=== PATIENT | female | born 1995 | race Caucasian/White ===

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

== ENCOUNTER 2017-02-10 15:06 | Emergency (ER) | payer BC ==
[2017-02-10 15:46] VITALS: BP 109/67
--- NOTE | 2017-02-10 16:09 | UC ---
Back Pain HPI - HPI Summary HPI Summary: 21 y/o female with prior history of back strain at work, resolved completely, states about 2 weeks ago started having lower back pain, no trauma/ falls/ heavy lifiting, has tried motrin, ice, heat, heat with some benefit, no worse with lying, standing, no aggravating factors, states pain at L hip, occassionally with radiate to rib region, no incontinence, numbness, decreased strength down legs. no other PMH, no medications. - History of Current Complaint Chief Complaint: UCBackPain Stated Complaint: LOW BACK PAIN Time Seen by Provider: 02/10/17 15:57 Hx Obtained From: Patient, Family/Starch [employer]er - boyfriend Hx Last Menstrual Period: 02/03/17 ?: No Onset/Duration: Gradual Onset, Lasting Weeks Timing: Constant Severity Initially: Moderate Severity Currently: Moderate - Allergies/Home Medications Allergies/Adverse Reactions: Allergies Allergy/AdvReac Type Severity Reaction Status Date / Time Amoxicillin [From Augmentin] Allergy Unknown Unknown Verified 02/10/17 15:42 Reaction Details Clavulanic Acid Allergy Unknown Unknown Verified 02/10/17 15:42 [From Augmentin] Reaction Details Home Medications: Home Medications Bupropion XL* [Wellbutrin XL *] 150 mg PO DAILY 02/10/17 [History Confirmed 07/29] PMH/Surg Hx/FS Hx/Imm Hx Previously Healthy: Yes Other History Of: Negative For: HIV, Hepatitis B, Hepatitis C, Anticoagulant Therapy - Surgical History Surgical History: Yes Surgery Procedure, Year, and Place: ear tubes and ear patches - Family History Known Family History: Negative: Cardiac Disease, Hypertension, Diabetes - Social History Alcohol Use: Rare Substance Use Type: Marijuana Substance Use Comment - Amount & Last Used: occ usage - 3-4 times per week Smoking Status (MU): Light Every Day Tobacco Smoker Type: Cigarettes Amount Used/How Often: 1-5 cigarettes daily Length of Time of Smoking/Using Tobacco: 2-3 YRS Have You Smoked in the Last Year: Yes Review of Systems Musculoskeletal: Arthralgia, Myalgia All Other Systems Reviewed And Are Negative: Yes Physical Exam Triage Information Reviewed: Yes Appearance: Well-Appearing, No Pain Distress, Well-Nourished Vital Signs: Initial Vital Signs Temp 99.5 F 02/10/17 15:43 Pulse 89 02/10/17 15:43 Resp 16 02/10/17 15:43 BP 109/67 02/10/17 15:43 Pulse Ox 100 02/10/17 15:43 Vital Signs Reviewed: Yes Eyes: Positive: Conjunctiva Clear Neck: Positive: Supple, Nontender Abdomen Description: Positive: Nontender Musculoskeletal: Positive: Strength Intact - B/L LEs, ROM Intact - B/L LEs Neurological Exam: Normal Neurological: Positive: Other: - patellar reflexes 2+ b/l Psychological: Positive: Normal Response To Family - Additional Comments + tenderness to palpation over L iliac crest , no abscess, mass palpation, no paraspinal tenderness no spinal tenderness. neg cva tenderness b/l Back Pain Course/Dx - Course Course Of Treatment: muscle spasm, continue NSAIDS, heat/ ice. - Differential Dx/Diagnosis Differential Diagnosis/HQI/PQRI: Fracture, Strain, Sprain Provider Diagnoses: back spasm, lower back Discharge - Discharge Plan Condition: Good Disposition: HOME Prescriptions: Baclofen TAB* [Lioresal TAB*] 5 mg PO TID PRN #12 tab PRN Reason: muscle spasm Ibuprofen TAB* [Motrin TAB* 600 MG] 600 mg PO Q6H PRN #60 tab PRN Reason: Pain Patient Education Materials: Ibuprofen (By mouth), Muscle Spasm (ED) Referrals: Dejon Judd MD [Primary Care Provider] - Additional Instructions: - increase rest, gentle stretching - Baclofen as needed three times daily for muscle spasm - GO to ER with numbness, decreased sensation, loss of bowel/ bladder function
== END 2017-02-10 16:14 | disposition home or self-care (01) ==
LOC: UCCORT 15:06
DX: M62.830 Muscle spasm of back (principal); Z88.1 Allergy status to other antibiotic agents; F12.90 Cannabis use, unspecified, uncomplicated; F17.210 Nicotine dependence, cigarettes, uncomplicated
CPT/HCPCS: 99212; G0463

== ENCOUNTER 2018-11-09 17:26 | Emergency (ER) | payer BC, MEDICAID ==
--- OUTSIDE RECORDS SUMMARY | 2018-11-09 17:38 | XMS REPORT | Continuity of Care Document ---
:1995 External Reference #:[id number] Author Name Cassandra Mg NP Address [address] [place] [id number] Care Team Providers Name Role Phone Dejon Judd MD Primary Care Physician Unavailable Payers Date Identification Numbers Payment Provider Subscriber Expires: 2018 Policy Number: [id number] Osvaldo Paniagua PayID: [id number] [address] [address] [place] [address] Policy Number: [id number] Medicaid -[place] PayID: [id number] [address] [place] [address] Advance Directives Description No Information Available Problems Description No Information Family History Date Family Member(s) Observation Comments Father Addiction Father Alive Mother Alive Social History Type Date Description Comments Sex Female Education Highest level completed, 12th grade Marital Status Legal Status: Never Tobacco Use Reviewed: 10/14/18 Never Smoked Cigars Tobacco Use Reviewed: 10/14/18 Never Smoked A Pipe Smoking Status Reviewed: 10/14/18 Never Smoked A Pipe Tobacco Use Reviewed: 10/14/18 Never Used Smokeless Tobacco ETOH Use 10/14/2018 Denies alcohol use Recreational Drug Use 10/14/2018 Former Drug User Tattoo/Piercing Piercings professionally done Tattoo/Piercing Tattoos professionally done Condom Use Never UNKNOWN 10/14/2018 Never E-Cigarette user Allergies, Adverse Reactions, Alerts Date Description Reaction Status Severity Comments 10/14/2018 Augmentin Hives Active Mild Medications Medication Date Status Form Strength Qnty SIG Indications Ordering Provider Vivitrol Active Suspension Rec 380mg Unknown 0 Immunizations CPT Code Status Date Vaccine Lot # [id number] Given 10/14/2018 [facility] Private Flu Vaccine [id number] Vital Signs Date Vital Result Comment 10/14/2018 12:27pm BP Systolic 116 mmHg BP Diastolic 77 mmHg Height 62 inches 5'2" Weight 162.00 lb BMI (Body Mass Index) 29.6 kg/m2 Results Test Date Facility Test Result H/L Range Note Urinalysis DIP 10/14/2018 [facility] Urine Leukocyte neg. Only.... Esterase QN Urine Nitrite QN neg. Urine Blood tr Urine PH 7.5 Urine Protein Random tr Urine Ketone Random neg. Urine Glucose QN Random neg. Laboratory test finding 10/14/2018 [facility] Test Urine..... negative Procedures Description No Information Available Encounters Description No Information Available Plan of Treatment 10/14/2018 - Cassandra Mg, NPZ30.09 Encounter for other general counseling and advice on contracComments:Discussion regarding contraception choices. Patient is not interested in starting any bc today.She states that she would be happy to become . Reviewed with patient that she is at risk of and should avoid tobacco, alcohol and drugs. Instructed her to start a daily vitamin with folic acid. Reviewed with her that vivitrol is category 3 which means that its effects on a fetusare unknown and recommend bc at this time but she declines. She states that if she were to find out that she was she would discuss stopping vivitrol. She does feel that she could maintain her sobriety off of the vivitrol during a .Z01.419 Encounter for gynecological examination (general) (routine)Comments:Reviewed healthy diet , exercise and safety with patient who states understanding.Counseled on Preventive , STI Awareness, Seat Belt Use, and Self Breast ExamFollow up:F/u in one year for annual. Sooner prn any concerns.N39.0 Urinary tract infection, site not specifiedComments:tr blood, send for cxZ11.3 Encounter for screening for infections with a predominantlyComments:Reviewed STD risks and prevention with patient. Patient states understanding.Z12.4 Encounter for screening for malignant neoplasm of kclezbD98.02 Encounter for test, result negative
[2018-11-09 18:02] VITALS: BP 103/70
--- NOTE | 2018-11-09 18:25 | UC ---
UC General HPI - HPI Summary HPI Summary: 2 day hx sore throat. + cough. period is 1 week late. has had 4 + home test. would like hcg test here. - History of Current Complaint Chief Complaint: UCGeneralIllness Stated Complaint: SORE THROAT Time Seen by Provider: 11/09/18 17:56 Hx Obtained From: Patient Hx Last Menstrual Period: 10/04/18 Pain Intensity: 4 Associated Signs & Symptoms: Negative: Abdominal Pain, Dysuria - Allergy/Home Medications Allergies/Adverse Reactions: Allergies Allergy/AdvReac Type Severity Reaction Status Date / Time amoxicillin [From Augmentin] Allergy Hives Verified 11/09/18 17:56 clavulanic acid Allergy Hives Verified 11/09/18 17:56 [From Augmentin] Home Medications: Home Medications NK [No Home Medications Reported] 11/09/18 [History Confirmed 11/09/18] PMH/Surg Hx/FS Hx/Imm Hx Previously Healthy: Yes Other History Of: Negative For: HIV, Hepatitis B, Hepatitis C, Anticoagulant Therapy - Surgical History Surgical History: Yes Surgery Procedure, Year, and Place: ear tubes and ear patches. tonsillectomy - Family History Known Family History: Negative: Cardiac Disease, Hypertension, Diabetes - Social History Alcohol Use: None Substance Use Type: None Substance Use Comment - Amount & Last Used: occ usage - 3-4 times per week Smoking Status (MU): Light Every Day Tobacco Smoker Type: Cigarettes Amount Used/How Often: 1-5 cigarettes daily Length of Time of Smoking/Using Tobacco: 2-3 YRS Have You Smoked in the Last Year: Yes Review of Systems All Other Systems Reviewed And Are Negative: Yes ENT: Positive: Sore Throat Gastrointestinal: Negative: Abdominal Pain Physical Exam Triage Information Reviewed: Yes Appearance: Well-Appearing Vital Signs: Initial Vital Signs Temp 98.2 F 11/09/18 17:56 Pulse 100 11/09/18 17:56 Resp 15 11/09/18 17:56 BP 103/70 11/09/18 17:56 Pulse Ox 99 11/09/18 17:56 Vital Signs Reviewed: Yes Eyes: Positive: Conjunctiva Clear ENT: Positive: Pharyngeal erythema - slight, TMs normal, Uvula midline. Negative: Nasal congestion, Nasal drainage, Trismus, Muffled voice, Hoarse voice Neck: Positive: Supple, Nontender, No Lymphadenopathy Respiratory: Positive: Lungs clear, Normal breath sounds Cardiovascular: Positive: RRR, No Murmur Abdomen Description: Positive: Nontender, No Organomegaly, Soft. Negative: Distended, Guarding Bowel Sounds: Positive: Present Musculoskeletal: Positive: ROM Intact Neurological: Positive: Alert Psychological: Positive: Age Appropriate Behavior Skin Exam: Normal Diagnostics - Laboratory Lab Results: Rapid strep=negative. Hcg=positive Course/Dx - Course Course Of Treatment: more discussion about + hcg reveals pt already has an OB f/u with VINNIE Hare in 2 weeks. - Diagnoses Provider Diagnosis: Sore throat Discharge - Sign-Out/Discharge Documenting (check all that apply): Patient Departure All imaging exams completed and their final reports reviewed: No Studies - Discharge Plan Condition: Stable Disposition: HOME Patient Education Materials: Pharyngitis (ED) Referrals: VINNIE Lamas [Medical Doctor] - Additional Instructions: FOLLOW UP SCHEDULED ON 11/23/18 FOR YOUR 1ST OB VISIT. FOLLOW UP SOONER IF WORSE. - Billing Disposition and Condition Condition: STABLE Disposition: Home
== END 2018-11-09 18:40 | disposition home or self-care (01) ==
LOC: UCCORT 17:26
DX: J02.9 Acute pharyngitis, unspecified (principal); R05 Cough; Z88.1 Allergy status to other antibiotic agents; Z88.0 Allergy status to penicillin; F17.210 Nicotine dependence, cigarettes, uncomplicated; Z32.01 Encounter for pregnancy test, result positive
CPT/HCPCS: 84702; 87651; 99211; G0463